=== PATIENT | female | born 1955 | race Caucasian/White ===

== ENCOUNTER → 2018-10-13 | Outpatient (CLI) | payer BC ==
[~2018-10-13] MED LIST: ACET500T68 PO; ALPR0.5T6 PO; AMIT10TA PO; CHOL20009 PO; CRESTOR10 MG PO; CYAN10005 PO; DOCU-109 PO; DOCU-150 PO; ESOM40CA47 PO; ESTR0.62 PO; FURO20TA3 PO; GUAI600T47 PO; IBUP-1027 PO; LEVO125T PO; LIOT5TAB PO; LORA10TA68 PO; MAGN400C PO; MELA3TAB2 PO; METH500T5 PO; METO50TA6 PO; MULT-99 PO; MULT1TAB52 PO; OMEGA 3 FATTY ACIDS PO; ONDA4TAB12 PO; PLEC3TAB PO; POLY17PO29 PO; POTA10TA12 PO; SUCR1TAB PO
--- NOTE | 2018-10-13 15:06 | RAD ---
LUMBAR SPINE WO CONTRAST Date: 10/13/2018 11:15 AM Indication: Lumbar stenosis Comparison: None. Technique: Multi-planar multi-weighted magnetic resonance imaging of the lumbar spine was performed without intravenous contrast using the standard lumbar spine protocol. FINDINGS: The lumbar spine is normally aligned. No acute fracture. Mild multilevel degenerative disc desiccation and disc height loss. Small sclerotic focus in the L1 vertebral body, likely bone island. The conus terminates at a normal level. No abnormal signal is seen within the visualized distal spinal cord. No clumping of intrathecal nerve roots. No soft tissue abnormality in the visualized abdomen or pelvis. T12-L1: No disc bulge. No facet arthropathy. No significant spinal stenosis or neural foraminal narrowing. L1-L2: Mild disc bulge. No facet arthropathy. No significant spinal stenosis or neural foraminal narrowing. L2-L3: No disc bulge. Mild facet arthropathy. No significant spinal stenosis or neural foraminal narrowing. L3-L4: No disc bulge. Mild facet arthropathy. No significant spinal stenosis or neural foraminal narrowing. L4-L5: Disc bulge. Mild to moderate facet arthropathy. Ligamentum flavum thickening. Mild spinal stenosis. Mild bilateral neural foraminal narrowing. L5-S1: Disc bulge. Mild facet arthropathy. No significant spinal stenosis . Moderate left and mild right neural foraminal narrowing. IMPRESSION: Lumbar spondylosis, detailed at the by level above. No high-grade spinal canal narrowing. Electronically signed by: Jimmie Woods MD (10/13/2018 3:04 PM) [id number]
[2018-10-13 16:06] LABS: BASO % 1 % (0-3); EOS # 0.1 x10^3/uL (0.0-0.7); EOS % 2 % (0-3); HEMATOCRIT 39.9 % (36.0-47.0); HEMOGLOBIN 13.4 g/dL (12.0-15.5); LYMPH # 1.9 x10^3/uL (1.0-4.8); LYMPH % 36 % (24-48); MEAN CORPUSCULAR HEMOGLOBIN 32 pg (25-35); MEAN CORPUSCULAR HGB CONC 34 g/dL (31-37); MEAN CORPUSCULAR VOLUME 96 fL (79-100); MONO # 0.4 x10^3/uL (0.0-1.1); MONO % 8 % (0-9); NEUT # 2.8 x10^3/uL (1.8-7.7); NEUT % 53 % (31-73); PLATELET COUNT 277 x10^3/uL (140-400); RED BLOOD COUNT 4.16 x10^6/uL (3.50-5.40); RED CELL DISTRIBUTION WIDTH 13.4 % (11.5-14.5); WHITE BLOOD COUNT 5.2 x10^3/uL (4.0-11.0)
[2018-10-13 16:43] LABS: ALBUMIN 3.4 g/dL (3.4-5.0); ALBUMIN/GLOBULIN RATIO 0.9 (1.0-1.7); CALCIUM 8.6 mg/dL (8.5-10.1); CREATININE 0.8 mg/dL (0.6-1.0); GFR 72.4; TOTAL BILIRUBIN 0.4 mg/dL (0.2-1.0); TOTAL PROTEIN 7.2 g/dL (6.4-8.2)
== END | disposition home or self-care (01) ==
LOC: PATH 11:10
PROVIDERS: ATTEND Neurological Surgery
DX: M47.816 Spondylosis without myelopathy or radiculopathy, lumbar region (principal); M48.062 Spinal stenosis, lumbar region with neurogenic claudication; M51.27 Other intervertebral disc displacement, lumbosacral region; M48.08 Spinal stenosis, sacral and sacrococcygeal region; M12.88 Other specific arthropathies, not elsewhere classified, other specified site
CPT/HCPCS: 36415; 72148; 80053; 85025; 87641